=== PATIENT | male | born 1965 | race Caucasian/White ===

== ENCOUNTER 2018-12-29 08:42 | Emergency (ER) | payer BC, OTHER ==
[~2018-12-29] VITALS: Ht 172.7 cm; Wt 76.2 kg
[2018-12-29 08:46] VITALS: BP 154/93
[2018-12-29] MEDS ORDERED: IBUPROFEN 800 MG TAB PO ONE (09:45)
== END 2018-12-29 10:28 | disposition home or self-care (01) ==
LOC: ER 09:00
DX: S33.5XXA Sprain of ligaments of lumbar spine, initial encounter (principal); M62.838 Other muscle spasm; X50.0XXA Overexertion from strenuous movement or load, initial encounter; Y93.89 Activity, other specified; Y99.8 Other external cause status; Y92.89 Other specified places as the place of occurrence of the external cause
CPT/HCPCS: 72131

== ENCOUNTER 2019-07-27 04:21 | Emergency (ER) | payer BC ==
[~2019-07-27] VITALS: Ht 172.7 cm; Wt 90.7 kg
[2019-07-27 06:09] LABS: Eosinophils # (auto) 0 uL; Red Cell Distribution Width 14.1 % (11.8-14.3); White Blood Cell 6.4 10^3/uL (4.4-10.8)
[2019-07-27 06:12] LABS: Basophils # (auto) 0.1 uL; Basophils % (auto) 0.9 % (0.0-2.0); Eosinophils % (auto) 0.4 % (0.0-7.0); Hematocrit 52.3 % (41.0-53.0); Hemoglobin 18.1 g/dL (13.5-17.5); Mean Corpuscular Hemoglobin 31.6 pg (28.0-32.0); Mean Corpuscular Hgb Conc. 34.5 g/dL (32.0-36.0); Mean Corpuscular Volume 91.5 fL (80.0-100.0); Monocytes # (auto) 0.8 uL; Neutrophils # (auto) 4.6 uL; Neutrophils % (auto) 71.7 % (37.0-80.0); Nucleated Red Blood Cells % 0.7 %; Platelet Count (auto) 246 10^3/uL (140-450); Red Blood Cells 5.72 10^6/uL (4.5-5.90)
[2019-07-27 06:32] LABS: Potassium 4.7 mmol/L (3.5-5.1)
[2019-07-27 06:39] LABS: Albumin 4.3 g/dL (3.4-5.0); BUN/Creatinine Ratio 11.2; Bilirubin, Total 0.4 mg/dL (0.2-1.0); Calcium 8.9 mg/dL (8.5-10.1)
[2019-07-27 07:38] VITALS: BP 149/86
[2019-07-27] MEDS ORDERED: cefTRIAXone SOD 1,000 MG VL IM ONE (07:45)
[2019-07-27] MEDS ORDERED: KETOROLAC TROMETH 60MG/2ML VIAL IM ONE (07:45)
[2019-07-27] MEDS ORDERED: LIDOCAINE 1% HCL (LOCAL ANESTH.) INJ 20ML MDV IJ ONE (08:00)
== END 2019-07-27 08:21 | disposition home or self-care (01) ==
LOC: ER 04:21
DX: J02.9 Acute pharyngitis, unspecified (principal)
CPT/HCPCS: 36415; 80053; 85025; 96372; 99283; J0696; J1885